=== PATIENT | male | born 1960 | race Two or more races ===

== ENCOUNTER 2025-02-12 14:35 | Emergency (ER) | payer OTHER ==
[~2025-02-12] VITALS: Ht 172.7 cm; Wt 81.6 kg
[~2025-02-12 14:35] MED LIST: NORVASC10 MG PO
[2025-02-12] MEDS ORDERED: TRAMADOL HCL 50 MG TABLET PO ONE (16:30)
[2025-02-12 17:30] LABS: BASO % 0.0 % (0.1-1.2); EOS # 0.00 (0.04-0.54); EOS % 0.0 % (0.7-7.0); LYMPH # 0.49 (1.18-3.74); LYMPH % 8.7 % (19.3-53.1); MEAN PLATELET VOLUME 9.60 fl (9.4-12.4); MONO # 0.09 (0.24-0.82); MONO % 1.6 % (4.7-12.5); NEUT # 5.02 (1.56-6.13); NEUT % 89.5 % (34.0-71.1); RED CELL DISTRIBUTION WIDTH 13.2 % (11.6-14.4)
[2025-02-12 18:03] LABS: ALT/SGPT 43.0 U/L (12-78); AST/SGOT 22.0 U/L (15-37); BILIRUBIN TOTAL 1.13 mg/dL (0.3-1.2); BUN CREA RATIO 13.0 (7.0-25.0); CREATININE SERUM 1.22 mg/dL (0.70-1.30); GFR 59.8; GLOBULINA 3.8 G/DL (2.4-3.5); GLUCOSE FASTING 129.0 mg/dL (65-100); OSMOLALITY SERUM 286.0 MOSM/KG (275-295)
[2025-02-12] MEDS ORDERED: CYCLOBENZAPRINE5 MG PO (19:35)
[2025-02-12] MEDS ORDERED: EC-NAPROSYN500 MG PO (19:35)
== END 2025-02-12 21:38 | disposition home or self-care (01) ==
LOC: ER 14:35
DX: M54.50 Low back pain, unspecified (principal); M54.9 Dorsalgia, unspecified; I10 Essential (primary) hypertension; Z91.041 Radiographic dye allergy status